=== PATIENT | male | born 1950 | race Caucasian/White ===

== ENCOUNTER 2018-04-22 00:15 | Inpatient (IN) ==
--- NOTE | 2018-04-22 00:29 | ED ---
HPI General Chief Complaint: Weakness Stated Complaint: med clear/psych screen Time Seen by Provider: 04/22/18 00:17 Source: patient and EMS Mode of arrival: EMS Limitations: no limitations History of Present Illness HPI Narrative: Sent for evaluation from psychiatric facility recent Prado act. 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) Related Data Home Medications Medication Instructions Recorded Confirmed albuterol sulfate 2 puff INHALATION Q4-6H PRN 04/22/18 04/22/18 Allergies Allergy/AdvReac Type Severity Reaction Status Date / Time No Known Allergies Allergy Verified 04/22/18 00:20 Review of Systems ROS: all other systems reviewed are negative Eyes Denies blurry vision Psychiatric Denies confusion, Denies depression, Denies visual hallucinations and Denies suicidal ideation PMFSH History History Provided By: Patient and Ruffler / EMT Medical History Medical History Medical history unknown (Acute) Surgical history unknown (Acute) Social History Social History Substance History: Unable to Obtain Smoking Status: Unknown if ever smoked How Often Do You Have a Drink Containing Alcohol: 4 or more times a week Recent Travel in [facility] within the Last 8 Weeks: No Recent Out of Country Travel within the Last 8 Weeks: No Exam Const General: cooperative and no acute distress HENMT Head: no Huang's sign and other (Healed scar forehead) Face and sinus: normal facial exam Eyes Visual Roche: normal visual roche by confrontation Conjunctivae: conjunctivae normal Pupils: PERRL EOM: EOM intact bilaterally Neck Neck: No JVD Chest Chest: normal palpation of entire chest wall Resp Effort & Inspection: normal respiratory effort and able to speak in complete sentences Auscultation: clear to auscultation bilaterally GI Palpation: soft, no guarding and nontender External: other (No incontinence urinary or fecal) Back/Spine/Pelvis Back: no CVA tenderness and other (Nontender cervical thoracic and lumbar pelvis stable full range of motion extremities. Plantar flexion is equal) Extrem General: normal to inspection and other (Moderate tremor in hands) Psych Appearance: disheveled Speech and Movement: speech not pressured Affect: normal affect Attitude: cooperative Thought Content: no delusions, no homicidality and suicidality Course Reevaluation(s) Reevaluation #1: Hemodynamically stable no signs of acute medical emergency and can be disposition for psychiatric evaluation No seizure activity in the emergency department, alert oriented x3 pending disposition / evaluation by psych md Time: 02:53 Initial Documented Vital Signs Temperature 98.3 F 04/22/18 00:27 Pulse Rate 97 H 04/22/18 00:27 Respiratory Rate 16 04/22/18 00:27 Blood Pressure 122/85 04/22/18 00:27 Pulse Oximetry 97 04/22/18 00:27 Last Documented Vital Signs Temperature 98.3 F 04/22/18 00:27 Pulse Rate 97 H 04/22/18 00:27 Respiratory Rate 16 04/22/18 00:27 Blood Pressure 122/85 04/22/18 00:27 Pulse Oximetry 97 04/22/18 00:27 Medical Decision Making [facility] Narrative Medical Screen Exam Complete: Yes Emergency Medical Condition: Yes Lab Data Result diagrams: 04/22/18 00:37 04/22/18 00:37 Lab Results 04/22/18 04/22/18 04/22/18 Range/Units 00:37 00:37 00:37 WBC 5.2 (4.0-11.0) th/mm3 RBC 3.50 L (4.50-5.90) mil/mm3 Hgb 12.0 L (13.0-17.0) gm/dL Hct 34.9 L (39.0-51.0) % MCV 99.8 (80.0-100.0) fL MCH 34.5 H (27.0-34.0) pg MCHC 34.5 (32.0-36.0) % RDW 13.0 (11.6-17.2) % Plt Count 107 L (150-450) th/mm3 MPV 9.4 (7.0-11.0) fL Neut % (Auto) 51.0 (16.0-70.0) % Lymph % (Auto) 33.0 (9.0-44.0) % Wilkinson % (Auto) 10.9 H (0.0-8.0) % Eos % (Auto) 3.8 (0.0-4.0) % Baso % (Auto) 1.3 (0.0-2.0) % Neut # (Auto) 2.6 (1.8-7.7) th/mm3 Lymph # (Auto) 1.7 (1.0-4.8) th/mm3 Wilkinson # (Auto) 0.6 (0.0-0.9) th/mm3 Eos # (Auto) 0.2 (0.0-0.4) th/mm3 Baso # (Auto) 0.1 (0.0-0.2) th/mm3 WBC Differential . Differential Comment Auto diff final Sodium 138 (136-145) meq/L Potassium 4.1 (3.5-5.1) meq/L Chloride 104 (98-107) meq/L Carbon Dioxide 27.4 (21.0-32.0) meq/L Anion Gap 7 (5-15) meq/L BUN 19 H (7-18) mg/dL Creatinine 0.86 (0.60-1.30) mg/dL Estimated GFR 89 (>89) mL/min Random Glucose 94 (74-106) mg/dL Calcium 8.1 L (8.5-10.1) mg/dL Magnesium 1.9 (1.5-2.5) mg/dL Total Bilirubin 0.9 (0.2-1.0) mg/dL AST 117 H (15-37) U/L ALT 44 (12-78) U/L Alkaline Phosphatase 65 (45-117) U/L Total Protein 7.4 (6.4-8.2) g/dL Albumin 3.5 (3.4-5.0) g/dL TSH 6.030 H (0.358-3.740) uIU/mL Salicylates 3.9 (2.8-20.0) mg/dL Acetaminophen Less than 2.0 L (10.0-30.0) mcg/mL Serum Alcohol Less than 3 (0-5) mg/dL Imaging Data Radiologist's impression: Head CT 04/22/18 00:20 CONCLUSION: 1. No acute intracranial abnormality. 2. Atrophy. . Discharge Plan Discharge Disposition Patient Disposition: 65 Disc To [facility] Facility Discharge Details Diagnosis: Chronic alcohol abuse Physicians Team ED Provider: Santana Vogt Primary Care Provider: UNKNOWN, Rxs /Orders / Referrals /Forms Prescriptions: No Action albuterol sulfate 90 mcg/actuation Hfa Aerosol Inhaler 2 puff INHALATION Q4-6H PRN (Reason: Shortness Of Breath) RF: 0 Status ED Status: Medically Cleared
[2018-04-22 00:59] LABS: Baso # (Auto) 0.1 th/mm3 (0.0-0.2); Baso % (Auto) 1.3 % (0.0-2.0); Eos # (Auto) 0.2 th/mm3 (0.0-0.4); Eos % (Auto) 3.8 % (0.0-4.0); Hematocrit 34.9 % (39.0-51.0); Lymph # (Auto) 1.7 th/mm3 (1.0-4.8); Mean Corpuscular HGB Conc 34.5 % (32.0-36.0); Mean Corpuscular Hemoglobin 34.5 pg (27.0-34.0); Mean Corpuscular Volume 99.8 fL (80.0-100.0); Mean Platelet Volume 9.4 fL (7.0-11.0); Mono # (Auto) 0.6 th/mm3 (0.0-0.9); Mono % (Auto) 10.9 % (0.0-8.0); Neut # (Auto) 2.6 th/mm3 (1.8-7.7); Platelet Count 107 th/mm3 (150-450); White Blood Count 5.2 th/mm3 (4.0-11.0)
[2018-04-22 01:12] LABS: Alanine Aminotransferase 44 U/L (12-78); Albumin 3.5 g/dL (3.4-5.0); Anion Gap 7 meq/L (5-15); Aspartate Aminotransferase 117 U/L (15-37); Blood Urea Nitrogen 19 mg/dL (7-18); Calcium 8.1 mg/dL (8.5-10.1); Carbon Dioxide 27.4 meq/L (21.0-32.0); Chloride 104 meq/L (98-107); Glomerular Filtration Rate 89 mL/min (>89); Glucose,Random 94 mg/dL (74-106); Magnesium 1.9 mg/dL (1.5-2.5); Potassium 4.1 meq/L (3.5-5.1); Sodium 138 meq/L (136-145)
[2018-04-22 01:21] LABS: Alkaline Phosphatase 65 U/L (45-117); Total Protein 7.4 g/dL (6.4-8.2)
--- NOTE | 2018-04-22 01:24 | CT ---
EXAM DATE: 04/22/2018 1:17 AM EST AGE/SEX: 67 years / Male INDICATIONS: Altered mental status. CLINICAL DATA: This is the patient's initial encounter. Patient reports that signs and symptoms have been present for 1 day and indicates a pain score of Nonresponsive. MEDICAL/SURGICAL HISTORY: Non-responsive. Non-responsive. RADIATION DOSE: 38.62 CTDI (mGy) COMPARISON: No prior exams available for comparison. TECHNIQUE: CT of the head without contrast. Using automated exposure control and adjustment of the mA and/or kV according to patient size, radiation dose was kept as low as reasonably achievable to ob tain optimal diagnostic quality images. DICOM format image data is available electronically for revi ew and comparison. FINDINGS: Cerebrum: The ventricles are normal for age. The cortical sulci are widened. No evidence of midline shift, mass lesion, hemorrhage or acute infarction. No extraaxial fluid collections are seen. Posterior Fossa: The cerebellum and brainstem are intact. The 4th ventricle is midline. The cerebe llopontine angle is unremarkable. Extracranial: The visualized portion of the orbits is intact. Skull: The calvaria is intact. No evidence of skull fracture. CONCLUSION: 1. No acute intracranial abnormality. 2. Atrophy. . Electronically signed by: Christopher Allen MD Board Certified Radiologist 04/22/2018 1:22 AM EST
[2018-04-22 09:42] LABS: Bacteria,Urine Rare /hpf; Bilirubin,Urine Negative (Negative); Clarity,Urine Cloudy (Clear); Color,Urine Yellow (Yellw/Straw); Glucose,Urine (UA) Negative (Negative); Leukocyte Esterase,Urine Negative (Negative); Nitrite,Urine Negative (Negative); Specific Gravity,Urine 1.014 (1.002-1.035); Squamous Epithelial Cell,Urine <1 /hpf (0-5)
[2018-04-22] MEDS ORDERED: Haloperidol Inj 5 MG/ML Ampul IV.PUSH PRN (12:11)
--- NOTE | 2018-04-22 16:03 | ED ---
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) If self harm: other (Denies at present) - General Chief Complaint: Weakness Stated Complaint: med clear/psych screen Time Seen by Provider: 04/22/18 15:14 - History of Present Illness HPI Narrative: History of Present Illness HPI Narrative: Patient is a 67-year male, , homeless, [employer] , on disability, retired, with reported history of alcohol dependence, history of seizures related to alcohol withdrawal, reported consumption of 2 pints of Southern comfort daily times many years, who was sent here from [facility] under a [employer] act due to being out of their scope of practice. He presented to as a under a Prado act which reads as follow " Chadwick stated that he wanted to kill himself, when asked how Chadwick stated that he did not know but he would find a way to do it. Chadwick explained that he was discharged from service after attempting suicide. Chadwick realizes that he needs help so that he does not hurt himself or others. "Documentation from [facility] states " the patient presented with a blood alcohol level of 220. He denied to screener at [facility] that he was suicidal and stated I was told [facility] him suicidal will get me detox, I need alcohol detox. 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 Patient is seen in Main ED. He is clinically sober at this time. He exhibits marked tremors of upper extremities. He is calm. And engaging. When asked for the reason of this visit he states" I need detox for alcohol."The patient does not present any evidence of any psychosis and or elly. He denies suicidal or homicidal ideation, intent or plan. Patient also reports that he is seeing medium size bugs flying around. His other concern besides requesting detox is that he has had recent episodes of unsteady gait with multiple falls. In terms of psychiatric history he is quite vague about his previous psychiatric history. When asked specifically he states I do not know what my diagnosis is. He denies that he has been prescribed psychiatric medicine. He does state that he has been seen at [facility], [facility] and at another facility in [place]. I suspect that these are substance abuse treatment admissions. In terms of substance use. He admits that he had began drinking alcohol at a very early age. With no significant periods of sobriety reported. (Nikki Gardner) - Related Data Home Medications Medication Instructions Recorded Confirmed albuterol sulfate 2 puff INHALATION Q4-6H PRN 04/22/18 04/22/18 Allergies Allergy/AdvReac Type Severity Reaction Status Date / Time No Known Allergies Allergy Verified 04/22/18 00:20 [facility] - History History Provided By: Patient, Manager Art / EMT - Medical History Medical History: Medical History (Last Updated 04/22/18 @ 00:32 by Gadiel Cartagena) Medical history unknown Surgical history unknown - Social History I have reviewed the patient's Social History: Yes - Tobacco History Smoking Status: Unknown if ever smoked - Alcohol History How Often Do You Have a Drink Containing Alcohol: 4 or more times a week - Substance Use History Substance History: Unable to Obtain - Travel History Recent Travel in the [facility] Within the Last 8 Weeks: No Recent Travel Out of the Country Within the Last 8 Weeks: No - Immunization History Tetanus Immunization: >5 Years Psychiatric History - Psychiatric History Psychiatric Treatment History: History of Psychiatric Treatment, History of Community Mental Health Treatment History of Inpatient Treatment: Yes Firearms in Home: No - Psychiatric History Patient is vague regarding previous psychiatric history. Denies any previous suicide attempt. Does report several visits to [facility], [facility], as well as another facility in [place]. He receives primary care at a local [place] outpatient clinic. (Nikki Gardner) - Legal History History of past charges for cultivating marijuana. (Nikki Gardner) - Family Psychiatric History None reported. (Nikki Gardner) Physical Exam - General Limitations: no limitations Mental Status Examination Appearance: Disheveled Consciousness: Alert Orientation: x4 Motor Activity: Other Speech: Other (tremolous ) Language: Adequate Fund of Knowledge: Adequate Attention and Concentration: Inadequate Memory: Unremarkable Mood: Irritable Affect: Appropriate Thought Process & Associations: Intact, Logical, Goal directed Thought Content: Appropriate, Hallucinations Hallucination Type: None, Visual Delusion Type: None Suicidal Ideation: No Suicidal Plan: No Suicidal Intention: No Homicidal Ideation: No Homicidal Plan: No Homicidal Intention: No Insight: Fair Initial Documented Vital Signs Temperature 98.3 F 04/22/18 00:27 Pulse Rate 97 H 04/22/18 00:27 Respiratory Rate 16 04/22/18 00:27 Blood Pressure 122/85 04/22/18 00:27 Pulse Oximetry 97 04/22/18 00:27 Last Documented Vital Signs Temperature 98.3 F 04/22/18 00:27 Pulse Rate 89 04/22/18 17:29 Respiratory Rate 18 04/22/18 17:29 Blood Pressure 142/92 H 04/22/18 17:29 Pulse Oximetry 97 04/22/18 17:29 MDM - Psych - Diagnosis (1) Alcohol dependence Code(s): F10.20 - Alcohol dependence, uncomplicated Status: Acute (2) Alcohol withdrawal Code(s): F10.239 - Alcohol dependence with withdrawal, unspecified Status: Acute - Lab Data Result diagrams: 04/22/18 00:37 04/22/18 00:37 - [facility] Narrative Medical decision making narrative: Patient is seen. He presents no evidence of unstable mental illness as defined under the Prado act law. He further states he does not remember what if any psychiatric diagnoses he has. He is currently not taking any psychiatric medication. Patient is requesting detoxification from alcohol. He is also requesting assistance with placement in an [facility]. He is reporting recent history of multiple falls. Patient also reported that he has been experiencing visual hallucinations in the form of medium size insects flying around his room. This type of hallucination of indicative of a delirium as a result of alcohol withdrawal. I have discussed this case with the mid-level provider in [facility]. I have relayed to her that the Prado act has been lifted as patient does not present criteria to remain under the Prdao act. I have also recommended possible medical admission for management of EtOH withdrawal symptomatology. (Nikki Gardner) - Lab Data Lab Results 04/22/18 04/22/18 04/22/18 Range/Units 00:37 00:37 00:37 WBC 5.2 (4.0-11.0) th/mm3 RBC 3.50 L (4.50-5.90) mil/mm3 Hgb 12.0 L (13.0-17.0) gm/dL Hct 34.9 L (39.0-51.0) % MCV 99.8 (80.0-100.0) fL MCH 34.5 H (27.0-34.0) pg MCHC 34.5 (32.0-36.0) % RDW 13.0 (11.6-17.2) % Plt Count 107 L (150-450) th/mm3 MPV 9.4 (7.0-11.0) fL Neut % (Auto) 51.0 (16.0-70.0) % Lymph % (Auto) 33.0 (9.0-44.0) % Washburn % (Auto) 10.9 H (0.0-8.0) % Eos % (Auto) 3.8 (0.0-4.0) % Baso % (Auto) 1.3 (0.0-2.0) % Neut # (Auto) 2.6 (1.8-7.7) th/mm3 Lymph # (Auto) 1.7 (1.0-4.8) th/mm3 Washburn # (Auto) 0.6 (0.0-0.9) th/mm3 Eos # (Auto) 0.2 (0.0-0.4) th/mm3 Baso # (Auto) 0.1 (0.0-0.2) th/mm3 WBC Differential . Differential Comment Auto diff final Sodium 138 (136-145) meq/L Potassium 4.1 (3.5-5.1) meq/L Chloride 104 (98-107) meq/L Carbon Dioxide 27.4 (21.0-32.0) meq/L Anion Gap 7 (5-15) meq/L BUN 19 H (7-18) mg/dL Creatinine 0.86 (0.60-1.30) mg/dL Estimated GFR 89 (>89) mL/min Random Glucose 94 (74-106) mg/dL Calcium 8.1 L (8.5-10.1) mg/dL Magnesium 1.9 (1.5-2.5) mg/dL Total Bilirubin 0.9 (0.2-1.0) mg/dL AST 117 H (15-37) U/L ALT 44 (12-78) U/L Alkaline Phosphatase 65 (45-117) U/L Total Protein 7.4 (6.4-8.2) g/dL Albumin 3.5 (3.4-5.0) g/dL TSH 6.030 H (0.358-3.740) uIU/mL Urine Color (Yellw/Straw) Urine Clarity (Clear) Urine pH (5.0-8.5) Ur Specific [place] (1.002-1.035) Urine Protein (Neg-Trace) mg/dL Urine Glucose (UA) (Negative) mg/dL Urine Ketones (Negative) mg/dL Urine Occult Blood (Negative) Urine Nitrate (Negative) Urine Bilirubin (Negative) Urine Urobilinogen (Less than 2) mg/dL Ur Leukocyte Esterase (Negative) Urine RBC (0-3) /hpf Ur Squamous Epith Cells (0-5) /hpf Urine Bacteria (None) /hpf Ur Microscopic Review Salicylates 3.9 (2.8-20.0) mg/dL Acetaminophen Less than 2.0 L (10.0-30.0) mcg/mL Serum Alcohol Less than 3 (0-5) mg/dL 04/22/18 Range/Units 09:08 WBC (4.0-11.0) th/mm3 RBC (4.50-5.90) mil/mm3 Hgb (13.0-17.0) gm/dL Hct (39.0-51.0) % MCV (80.0-100.0) fL MCH (27.0-34.0) pg MCHC (32.0-36.0) % RDW (11.6-17.2) % Plt Count (150-450) th/mm3 MPV (7.0-11.0) fL Neut % (Auto) (16.0-70.0) % Lymph % (Auto) (9.0-44.0) % Washburn % (Auto) (0.0-8.0) % Eos % (Auto) (0.0-4.0) % Baso % (Auto) (0.0-2.0) % Neut # (Auto) (1.8-7.7) th/mm3 Lymph # (Auto) (1.0-4.8) th/mm3 Washburn # (Auto) (0.0-0.9) th/mm3 Eos # (Auto) (0.0-0.4) th/mm3 Baso # (Auto) (0.0-0.2) th/mm3 WBC Differential Differential Comment Sodium (136-145) meq/L Potassium (3.5-5.1) meq/L Chloride (98-107) meq/L Carbon Dioxide (21.0-32.0) meq/L Anion Gap (5-15) meq/L BUN (7-18) mg/dL Creatinine (0.60-1.30) mg/dL Estimated GFR (>89) mL/min Random Glucose (74-106) mg/dL Calcium (8.5-10.1) mg/dL Magnesium (1.5-2.5) mg/dL Total Bilirubin (0.2-1.0) mg/dL AST (15-37) U/L ALT (12-78) U/L Alkaline Phosphatase (45-117) U/L Total Protein (6.4-8.2) g/dL Albumin (3.4-5.0) g/dL TSH (0.358-3.740) uIU/mL Urine Color Yellow (Yellw/Straw) Urine Clarity Cloudy H (Clear) Urine pH 7.0 (5.0-8.5) Ur Specific [place] 1.014 (1.002-1.035) Urine Protein Negative (Neg-Trace) mg/dL Urine Glucose (UA) Negative (Negative) mg/dL Urine Ketones Trace H (Negative) mg/dL Urine Occult Blood Negative (Negative) Urine Nitrate Negative (Negative) Urine Bilirubin Negative (Negative) Urine Urobilinogen Less than 2 (Less than 2) mg/dL Ur Leukocyte Esterase Negative (Negative) Urine RBC Less than 1 (0-3) /hpf Ur Squamous Epith Cells <1 (0-5) /hpf Urine Bacteria Rare H (None) /hpf Ur Microscopic Review Not Reportable Salicylates (2.8-20.0) mg/dL Acetaminophen (10.0-30.0) mcg/mL Serum Alcohol (0-5) mg/dL
[2018-04-22] MEDS ORDERED: Bisacodyl 10 MG Supp RECTAL PRN (19:17)
[2018-04-22] MEDS ORDERED: Acetaminophen 325 MG Tablet PO PRN (19:17)
--- NOTE | 2018-04-22 19:31 | P.HPIM ---
History of Present Illness Service: 67-year-old male with a history of alcoholism who presented to the ER with complaints of going through withdrawal and experiencing tremors. He has been in and out of treatment at [facility] where he remained in a fdc house for 9 months, on his release date he went straight to the liquor store and relapsed. From there he went to [place] at [facility] where he was treated for alcoholism as well as a few other medical issues, most recently a laceration on his central right scalp. He states his last alcoholic beverage was 3 days ago. He is having tremors but is not delirious and states that he has not had seizures in the past. Other medical history includes a pattern of urinary hesitation and difficult time with initiating which places him in a category that is suspicious for BPH versus prostate cancer. He requested Flomax. He denies any chest pain, shortness of breath, cough, fever, diarrhea, nausea, vomiting, other. Primary Care Physician: UNKNOWN Diagnosis (1) Alcohol dependence: (2) Alcohol withdrawal: Review of Systems Review of Systems: all other systems reviewed are negative [facility] Medical History Medical History Alcoholism (Acute) BPH (benign prostatic hyperplasia) (Acute) Medical history unknown (Acute) Surgical history unknown (Acute) Family History Family History Other Hypertension Social History Social History Substance History: Unable to Obtain Smoking Status: Unknown if ever smoked How Often Do You Have a Drink Containing Alcohol: 4 or more times a week Recent Travel in [facility] within the Last 8 Weeks: No Recent Out of Country Travel within the Last 8 Weeks: No Immunization History Tetanus Immunization: >5 Years Medications and Allergies Allergies Allergy/AdvReac Type Severity Reaction Status Date / Time No Known Allergies Allergy Verified 04/22/18 00:20 Home Medications Medication Instructions Recorded Confirmed Type albuterol sulfate 2 puff INHALATION Q4-6H PRN 04/22/18 04/22/18 History Active Medications: Active Medications Acetaminophen (Tylenol) 650 mg PO Q4H PRN PRN Reason: Temp > 100.4 Al Hydroxide/Mg Hydroxide (Milk Of Magnesia Liq) 30 ml PO Q12H PRN PRN Reason: Mild Constipation Bisacodyl (Dulcolax Supp) 10 mg RECTAL DAILY PRN PRN Reason: SEVERE CONSITIPATION Flumazenil (Romazecon Inj) 0.2 mg IV.PUSH Q1M PRN PRN Reason: OVERSEDATION Haloperidol Lactate (Haldol Inj) 1 mg IV.PUSH Q15M PRN PRN Reason: for severe agitation Lactulose (Lactulose Liq) 30 ml PO DAILY PRN PRN Reason: SEVERE CONSITIPATION Lorazepam (Ativan Inj) 1 mg IV.PUSH Q4H PRN PRN Reason: for CIWA 8-10 Last Admin: 04/22/18 15:56 Dose: 1 mg Lorazepam (Ativan Inj) 2 mg IV.PUSH Q15M PRN PRN Reason: for CIWA > 20 Last Admin: 04/22/18 12:30 Dose: 2 mg Lorazepam (Ativan Inj) 2 mg IV.PUSH Q1H PRN PRN Reason: for CIWA 15-20 Lorazepam (Ativan Inj) 2 mg IV.PUSH Q2H PRN PRN Reason: for CIWA 11-14 Lorazepam (Ativan) 2 mg PO Q2H PRN PRN Reason: for CIWA 11-14 Lorazepam (Ativan) 1 mg PO Q4H PRN PRN Reason: for CIWA 8-10 Ondansetron HCl (Zofran Inj) 4 mg IV.PUSH Q6H PRN PRN Reason: NAUSEA OR VOMITING Sennosides (Senokot) 17.2 mg PO Q12H PRN PRN Reason: Moderate Constipation Sodium Chloride (Ns Flush) 2 ml IV.FLUSH BID ASTRID Sodium Chloride (Ns Flush) 2 ml IV.FLUSH PRN PRN PRN Reason: FLUSH AFTER USING IV ACCESS Tamsulosin HCl (Flomax) 0.4 mg PO DAILY ASTRID Physical Exam Vital signs: Last Vital Signs Temp 98.3 F 04/22/18 00:27 Pulse 87 04/22/18 19:08 Resp 17 04/22/18 19:08 BP 137/91 H 04/22/18 19:08 Pulse Ox 96 04/22/18 19:08 Intake & Output 04/20/18 04/21/18 04/22/18 04/23/18 06:59 06:59 06:59 06:59 Output Total 750 / 750 Balance -750 / -750 Weight 77.111 kg Narrative: GENERAL: AAOx3, tremulous, hungry, thin SKIN: Warm and dry, no rashes. HEAD: Atraumatic. Normocephalic. EYES: Pupils equal, round, reactive to light. No scleral icterus. No injection or drainage. ENT: No nasal bleeding or discharge. Moist mucous membranes. Nonerythematous oropharynx. NECK: Trachea midline. No JVD. Thyroid size within normal limits. CARDIOVASCULAR: Regular rate and rhythm, no tachycardia. No murmur, no gallops , no rubs. RESPIRATORY: Clear and equal to auscultation bilaterally. No crackles, no wheezes. No accessory muscle use. GASTROINTESTINAL: Abdomen soft, non-tender, nondistended, normal active bowel sounds. Hepatic and splenic margins not palpable. MUSCULOSKELETAL: Extremities without clubbing or cyanosis. No obvious deformities. No edema. NEUROLOGICAL: Alert and oriented x3, mild to moderate tremors. No obvious cranial nerve deficits. Motor grossly within normal limits. No focal deficits. Five out of 5 muscle strength in the arms and legs. Normal speech. PSYCHIATRIC: Appropriate mood and affect; insight and judgment normal. Results Labs CBC & Chem 7: 04/22/18 00:37 04/22/18 00:[address] 04/22/18 00:20 CONCLUSION: 1. No acute intracranial abnormality. 2. Atrophy. . Caprini VTE Risk Assessment Caprini VTE Risk Assessment: No/Low Risk (score <= 1) Caprini Risk Assessment Model: Point Value = 1 Point Value = 2 Point Value = 3 Point Value = 5 Age 41-60 Minor surgery BMI > 25 kg/m2 Swollen legs Varicose veins or History of unexplained or recurrent spontaneous Oral contraceptives or hormone replacement Sepsis (< 1 month) Serious lung disease, including pneumonia (< 1 month) Abnormal pulmonary function Acute myocardial infarction Congestive heart failure (< 1 month) History of inflammatory bowel disease Medical patient at bed rest Age 61-74 Arthroscopic surgery Major open surgery (> 45 min) Laparoscopic surgery (> 45 min) Malignancy Confined to bed (> 72 hours) Immobilizing plaster cast Central venous access Age >= 75 History of VTE Family history of VTE Factor V Leiden Prothrombin [id number] Lupus anticoagulant Anticardiolipin antibodies Elevated serum homocysteine Heparin-induced thrombocytopenia Other congenital or acquired thrombophilia Stroke (< 1 month) Elective arthroplasty Hip, pelvis, or leg fracture Acute spinal cord injury (< 1 month) Prophylaxis Regimen: Total Risk Factor Score Risk Level Prophylaxis Regimen 0-1 Low Early ambulation 2 Moderate Order ONE of the following: *Sequential Compression Device (SCD) *Heparin 5000 units SQ BID 3-4 Higher Order ONE of the following medications: *Heparin 5000 units SQ TID *Enoxaparin/Lovenox 40 mg SQ daily (WT < 150 kg, CrCl > 30 mL/min) *Enoxaparin/Lovenox 30 mg SQ daily (WT < 150 kg, CrCl > 10-29 mL/min) *Enoxaparin/Lovenox 30 mg SQ BID (WT < 150 kg, CrCl > 30 mL/min) AND/OR *Sequential Compression Device (SCD) 5 or more Highest Order ONE of the following medications: *Heparin 5000 units SQ TID (Preferred with Epidurals) *Enoxaparin/Lovenox 40 mg SQ daily (WT < 150 kg, CrCl > 30 mL/min) *Enoxaparin/Lovenox 30 mg SQ daily (WT < 150 kg, CrCl > 10-29 mL/min) *Enoxaparin/Lovenox 30 mg SQ BID (WT < 150 kg, CrCl > 30 mL/min) AND *Sequential Compression Device (SCD) Assessment and Plan (1) Alcohol dependence: Code(s): F10.20 - Alcohol dependence, uncomplicated Status: Acute (2) Alcohol withdrawal: Code(s): F10.239 - Alcohol dependence with withdrawal, unspecified Status: Acute Plan Delirium tremens Patient is withdrawing from habit of drinking hard liquor, regular Praveen Velazquez He denies any suicidal ideation or thoughts of self-harm I have explained Seawell protocol to him and he is not asking for any other medications besides those that will help his withdrawal He is interested in seeking help following this hospitalization, either inpatient, outpatient or groups Continue with [facility] protocol Benign prostatic hypertrophy Patient states he has a difficult time initiating urinary stream, up frequently overnight He requested Flomax specifically Last PSA was unknown, will get PSA with a.m. labs h/o alcoholism Patient is a long time alcoholic, he reports a lot of bleeding from a recent laceration Cirrhosis of the risk with clotting disorder, will check INR with a.m. labs DVT prophylaxis Patient may be at risk if INR is elevated, will do SCDs for now Follow-up INR
[2018-04-22] MEDS: LORazepam 1 MG Tablet PO PRN (20:39)
--- NOTE | 2018-04-22 21:11 | ED ---
HPI General Chief complaint: Weakness Stated complaint: med clear/psych screen Time Seen by Provider: 04/22/18 15:14 Source: patient and EMS Mode of arrival: EMS Limitations: no limitations History of Present Illness HPI narrative: Patient was admitted. Related Data Home Medications Medication Instructions Recorded Confirmed albuterol sulfate 2 puff INHALATION Q4-6H PRN 04/22/18 04/22/18 Allergies Allergy/AdvReac Type Severity Reaction Status Date / Time No Known Allergies Allergy Verified 04/22/18 00:20 Review of Systems ROS: all other systems reviewed are negative Neurologic Denies confusion [facility] Medical History Medical History Alcoholism (Acute) BPH (benign prostatic hyperplasia) (Acute) Medical history unknown (Acute) Surgical history unknown (Acute) Family History Family History Other Hypertension Social History Social History Substance History: Unable to Obtain Smoking Status: Unknown if ever smoked How Often Do You Have a Drink Containing Alcohol: 4 or more times a week Recent Travel in [facility] within the Last 8 Weeks: No Recent Out of Country Travel within the Last 8 Weeks: No Immunization History Tetanus Immunization: >5 Years Exam Narrative Exam Narrative: See previous dictation Course Initial Documented Vital Signs Temperature 98.3 F 04/22/18 00:27 Pulse Rate 97 H 04/22/18 00:27 Respiratory Rate 16 04/22/18 00:27 Blood Pressure 122/85 04/22/18 00:27 Pulse Oximetry 97 04/22/18 00:27 Last Documented Vital Signs Temperature 98.3 F 04/22/18 00:27 Pulse Rate 87 04/22/18 19:08 Respiratory Rate 17 04/22/18 19:08 Blood Pressure 137/91 H 04/22/18 19:08 Pulse Oximetry 96 04/22/18 19:08 Medical Decision Making [facility] Narrative Medical decision making narrative: Patient was admitted Medical Screen Exam Complete: Yes Emergency Medical Condition: Yes Lab Data Result diagrams: 04/22/18 00:37 04/22/18 00:37 Lab Results 04/22/18 04/22/18 04/22/18 Range/Units 00:37 00:37 00:37 WBC 5.2 (4.0-11.0) th/mm3 RBC 3.50 L (4.50-5.90) mil/mm3 Hgb 12.0 L (13.0-17.0) gm/dL Hct 34.9 L (39.0-51.0) % MCV 99.8 (80.0-100.0) fL MCH 34.5 H (27.0-34.0) pg MCHC 34.5 (32.0-36.0) % RDW 13.0 (11.6-17.2) % Plt Count 107 L (150-450) th/mm3 MPV 9.4 (7.0-11.0) fL Neut % (Auto) 51.0 (16.0-70.0) % Lymph % (Auto) 33.0 (9.0-44.0) % [place] % (Auto) 10.9 H (0.0-8.0) % Eos % (Auto) 3.8 (0.0-4.0) % Baso % (Auto) 1.3 (0.0-2.0) % Neut # (Auto) 2.6 (1.8-7.7) th/mm3 Lymph # (Auto) 1.7 (1.0-4.8) th/mm3 [place] # (Auto) 0.6 (0.0-0.9) th/mm3 Eos # (Auto) 0.2 (0.0-0.4) th/mm3 Baso # (Auto) 0.1 (0.0-0.2) th/mm3 WBC Differential . Differential Comment Auto diff final Sodium 138 (136-145) meq/L Potassium 4.1 (3.5-5.1) meq/L Chloride 104 (98-107) meq/L Carbon Dioxide 27.4 (21.0-32.0) meq/L Anion Gap 7 (5-15) meq/L BUN 19 H (7-18) mg/dL Creatinine 0.86 (0.60-1.30) mg/dL Estimated GFR 89 (>89) mL/min Random Glucose 94 (74-106) mg/dL Calcium 8.1 L (8.5-10.1) mg/dL Magnesium 1.9 (1.5-2.5) mg/dL Total Bilirubin 0.9 (0.2-1.0) mg/dL AST 117 H (15-37) U/L ALT 44 (12-78) U/L Alkaline Phosphatase 65 (45-117) U/L Total Protein 7.4 (6.4-8.2) g/dL Albumin 3.5 (3.4-5.0) g/dL TSH 6.030 H (0.358-3.740) uIU/mL Urine Color (Yellw/Straw) Urine Clarity (Clear) Urine pH (5.0-8.5) Ur Specific [place] (1.002-1.035) Urine Protein (Neg-Trace) mg/dL Urine Glucose (UA) (Negative) mg/dL Urine Ketones (Negative) mg/dL Urine Occult Blood (Negative) Urine Nitrate (Negative) Urine Bilirubin (Negative) Urine Urobilinogen (Less than 2) mg/dL Ur Leukocyte Esterase (Negative) Urine RBC (0-3) /hpf Ur Squamous Epith Cells (0-5) /hpf Urine Bacteria (None) /hpf Ur Microscopic Review Salicylates 3.9 (2.8-20.0) mg/dL Acetaminophen Less than 2.0 L (10.0-30.0) mcg/mL Serum Alcohol Less than 3 (0-5) mg/dL 04/22/18 Range/Units 09:08 WBC (4.0-11.0) th/mm3 RBC (4.50-5.90) mil/mm3 Hgb (13.0-17.0) gm/dL Hct (39.0-51.0) % MCV (80.0-100.0) fL MCH (27.0-34.0) pg MCHC (32.0-36.0) % RDW (11.6-17.2) % Plt Count (150-450) th/mm3 MPV (7.0-11.0) fL Neut % (Auto) (16.0-70.0) % Lymph % (Auto) (9.0-44.0) % [place] % (Auto) (0.0-8.0) % Eos % (Auto) (0.0-4.0) % Baso % (Auto) (0.0-2.0) % Neut # (Auto) (1.8-7.7) th/mm3 Lymph # (Auto) (1.0-4.8) th/mm3 [place] # (Auto) (0.0-0.9) th/mm3 Eos # (Auto) (0.0-0.4) th/mm3 Baso # (Auto) (0.0-0.2) th/mm3 WBC Differential Differential Comment Sodium (136-145) meq/L Potassium (3.5-5.1) meq/L Chloride (98-107) meq/L Carbon Dioxide (21.0-32.0) meq/L Anion Gap (5-15) meq/L BUN (7-18) mg/dL Creatinine (0.60-1.30) mg/dL Estimated GFR (>89) mL/min Random Glucose (74-106) mg/dL Calcium (8.5-10.1) mg/dL Magnesium (1.5-2.5) mg/dL Total Bilirubin (0.2-1.0) mg/dL AST (15-37) U/L ALT (12-78) U/L Alkaline Phosphatase (45-117) U/L Total Protein (6.4-8.2) g/dL Albumin (3.4-5.0) g/dL TSH (0.358-3.740) uIU/mL Urine Color Yellow (Yellw/Straw) Urine Clarity Cloudy H (Clear) Urine pH 7.0 (5.0-8.5) Ur Specific [place] 1.014 (1.002-1.035) Urine Protein Negative (Neg-Trace) mg/dL Urine Glucose (UA) Negative (Negative) mg/dL Urine Ketones Trace H (Negative) mg/dL Urine Occult Blood Negative (Negative) Urine Nitrate Negative (Negative) Urine Bilirubin Negative (Negative) Urine Urobilinogen Less than 2 (Less than 2) mg/dL Ur Leukocyte Esterase Negative (Negative) Urine RBC Less than 1 (0-3) /hpf Ur Squamous Epith Cells <1 (0-5) /hpf Urine Bacteria Rare H (None) /hpf Ur Microscopic Review Not Reportable Salicylates (2.8-20.0) mg/dL Acetaminophen (10.0-30.0) mcg/mL Serum Alcohol (0-5) mg/dL Imaging Data Radiologist's impression: Head CT 04/22/18 00:20 CONCLUSION: 1. No acute intracranial abnormality. 2. Atrophy. . Discharge Plan Discharge Disposition Patient Disposition: ED Admit(ED Internal Use Only) Discharge Order Discharge Orders: ED Use Only Admit Order (Routine); Ordered 04/22/18 Ordered By: Sravanthi Garcia Discharge Details Diagnosis: Chronic alcohol abuse Physicians Team ED Provider: Santana Vogt ED Midlevel Provider: Sravanthi Garcia Primary Care Provider: UNKNOWN, Attending Provider: Petar Charles Status ED Status: Admitted Observation Patient
[2018-04-22 23:05] LABS: Amphetamine Screen,Urine Neg (Neg); Barbiturate Screen,Urine Neg (Neg); Cannabinoid Screen,Urine Neg (Neg); Cocaine Screen,Urine Neg (Neg)
[2018-04-22 23:08] LABS: Opiate Screen,Urine Neg (Neg)
--- NOTE | 2018-04-23 09:48 | P.PNIM ---
Subjective Interval history: Patient seen and examined this morning at the bedside no tactile hallucinations but reports hearing auditory hallucinations no active cp + sob no nausea, no belly pain + tremors ( reports this happens with withdrawl) has been in and out of rehab Physical Exam Vital signs: Last Vital Signs Temp 97.8 F 04/23/18 04:00 Pulse 100 H 04/23/18 04:00 Resp 19 04/23/18 04:00 BP 140/66 04/23/18 04:00 Pulse Ox 100 04/23/18 04:00 Intake & Output 04/21/18 04/22/18 04/23/18 04/24/18 06:59 06:59 06:59 06:59 Intake Total 120 / 120 Output Total 750 / 750 Balance -630 / -630 Weight 77.111 kg 61.2 kg gen: nad heent: eomi cvs: s1/s2 resp: cta bilaterally gi: soft, non tender, non distended, no rebound. + asterixis ext: no edema. LE bruising s/p fall. neuro: + tremor visible Results Labs CBC & Chem 7: 04/22/18 00:37 04/22/18 00:37 Assessment and Plan (1) Alcohol dependence: Code(s): F10.20 - Alcohol dependence, uncomplicated Status: Acute (2) Alcohol withdrawal: Code(s): F10.239 - Alcohol dependence with withdrawal, unspecified Status: Acute Plan Patient is a 67-year-old male with past medical history of alcohol abuse with multiple sessions of rehab who presents with tremors and shakes in the setting of recurrent alcohol intake concerning for alcohol withdrawal Psychiatry: Alcohol abuse Counseled patient on importance of alcohol cessation. Patient is open to rehab again. Explained to patient that rehab alone will not solve his problem and that he will also need to make further adjustments once discharged to best be successful at avoiding recurrence of alcohol abuse. Patient verbalized understanding Folic acid CIWA protocol. Patient currently scoring 13. If patient continues to score excessively high will consider transfer to ICU for closer monitoring A.m. lab follow-up Urology: Urinary dribbling PSA ordered previously still pending Continue Flomax CODE STATUS: Full code DVT prophylaxis: SCD/ambulation Disposition: Medical surgery unit Progress Note: Quality VTE Deep Vein Thrombosis/Pulmonary Embolism Present on Admission: No
[2018-04-23] MEDS: LORazepam 1 MG Tablet PO PRN (17:41)
[2018-04-24 05:48] LABS: Free PSA/PSA Ratio 0.12 ratio
[2018-04-24] MEDS: LORazepam 1 MG Tablet PO PRN (08:52)
--- NOTE | 2018-04-24 16:14 | P.PNIM ---
Subjective Interval history: 67-year-old white gentleman who is an alcoholic admitted with alcohol withdrawal. Patient seen and examined, still quite shaky, unsteady gait, very tremulous, denies shortness of breath or chest pain, Physical Exam Vital signs: Last Vital Signs Temp 98.3 F 04/24/18 08:00 Pulse 101 H 04/24/18 15:55 Resp 16 04/24/18 15:55 BP 125/80 04/24/18 15:55 Pulse Ox 97 04/24/18 15:55 Intake & Output 04/22/18 04/23/18 04/24/18 04/25/18 06:59 06:59 06:59 06:59 Intake Total 120 / 120 120 / 120 Output Total 750 / 750 250 / 250 Balance -630 / -630 -130 / -130 Weight 77.111 kg 61.2 kg 61.2 kg Well-developed well-nourished 67-year-old white male Awake, little weak, tremulous, unsteady, no distress Heart S1-S2 regular mildly tachycardic Lungs clear no wheeze no rhonchi Abdomen soft nondistended positive bowel sounds Extremities no clubbing cyanosis, tremulous Results Labs CBC & Chem 7: 04/22/18 00:37 04/22/18 00:37 Assessment and Plan (1) Alcohol dependence: Code(s): F10.20 - Alcohol dependence, uncomplicated Status: Acute (2) Alcohol withdrawal: Code(s): F10.239 - Alcohol dependence with withdrawal, unspecified Status: Acute Plan ACUTE ALCOHOL WITHDRAWAL, with severe symptoms, impending DTscontinue CIWA protocol, continue supportive care, PT eval, ambulating when stable, continue thiamine folate CHRONIC ALCOHOLISMoutpatient AA follow-up PROSTATISM/BPH symptoms, follow-up PSA continue Flomax as tolerated COPD/asthmastable continue albuterol as needed DVT prophylaxisSCDs Dispositiondischarge home when stable Progress Note: Quality VTE Deep Vein Thrombosis/Pulmonary Embolism Present on Admission: No
[2018-04-24] MEDS: chlordiazePOXIDE 25 MG Capsule PO SCH ×2 (19:00→22:50)
[2018-04-25 04:27] VITALS: O2SAT 98
[2018-04-25] MEDS: chlordiazePOXIDE 25 MG Capsule PO SCH ×2 (06:13→11:58)
[2018-04-25 08:58] VITALS: BP 134/88
--- NOTE | 2018-04-25 11:11 | P.DS ---
DS: Providers Date of admission: 04/23/18 11:30 Primary care physician: UNKNOWN DS: Diagnosis Discharge Diagnosis (1) Alcohol dependence: Status: Acute (2) Alcohol withdrawal: Status: Acute DS: Summary 67-year-old gentleman who is an alcoholic admitted for acute alcohol withdrawal. Patient was continued on Seawell protocol continue with IV fluids hydration supportive care. He slowly improved, he was tolerating a diet, and ambulatory. He was afebrile, oxygenating well on room air and otherwise stable for discharge home for outpatient follow-up. Discharge diagnosis: Acute alcohol withdrawal with severe symptoms Chronic alcoholism Prostatism with BPH symptoms COPD/asthma Depression Time Spent with Patient Total time spent providing and/or coordinating discharge services: Greater than 30 minutes Status at Discharge Functional status at discharge: uses cane/walker Overall status at discharge: patient is back to baseline Quality: VTE Deep Vein Thrombosis/Pulmonary Embolism Present on Admission: No Results Impressions ITS Impressions Head CT 04/22/18 00:20 CONCLUSION: 1. No acute intracranial abnormality. 2. Atrophy. . Discharge Plan Discharge Disposition Patient Disposition: Discharge Home Discharge Condition Condition: Fair Discharge Order Discharge Orders: Discharge Order (Routine); Ordered 04/25/18 Ordered By: Montserrat Cancino Physicians Team Primary Care Provider: UNKNOWN, Attending Provider: Montserrat Cancino Rxs /Orders / Referrals /Forms Prescriptions: Continue albuterol sulfate 90 mcg/actuation Hfa Aerosol Inhaler 2 puff INHALATION Q4-6H PRN (Reason: Shortness Of Breath) RF: 0 Referrals: [facility] [Outside] - See Instructions ( Please call your pcp or the physician's office above to book the appointment to be seen within [2 d].) UNKNOWN, [Primary Care Provider] - See Instructions Discharge Instructions Patient Printed Instructions: Chlordiazepoxide (By mouth), Tamsulosin (By mouth ), Abuse of Alcohol (DC), Alcohol Withdrawal (DC) Status ED Status: Left Department Discharge Information Discharge Date/Time: 04/25/18 13:46
[2018-04-25 11:49] VITALS: PULSE 103; RESP 16; TEMP 98.7
== END 2018-04-25 13:46 | disposition home or self-care (01) ==
LOC: NEDA 00:15 → NEPC 00:15 → NEPGCP 20:53
PROVIDERS: ADMIT Internal Medicine; ATTEND Internal Medicine